=== PATIENT | male | born 1990 | race African-American/Black ===

== ENCOUNTER 2021-04-08 05:21 | Emergency (ER) | payer SELFPAY ==
[~2021-04-08] VITALS: Ht 182.9 cm; Wt 81.8 kg
--- NOTE | 2021-04-08 07:03 | RAD ---
EXAMINATION: XR CHEST 1V CLINICAL HISTORY: Cough EXAM DATE/TIME: 04/08/2021 6:38 AM COMPARISON: None FINDINGS: Lines, Tubes, and Devices: None. Cardiomediastinal Silhouette: Within normal limits. Lungs and Pleura: No evidence of focal airspace consolidation, pleural effusion, or pneumothorax. Bones and Soft Tissues: No acute osseous abnormality. IMPRESSION: No evidence of acute cardiopulmonary abnormality. Electronically signed by: Anup Platt DO (04/08/2021 7:00 AM) MIKIE
[2021-04-08] MEDS ORDERED: CETI1TAB7 PO (07:14)
[2021-04-08] MEDS ORDERED: PRED50TA PO (07:14)
--- NOTE | 2021-04-08 07:15 | ED.ADGEN ---
Past Medical History Past Medical History: No Pertinent History Past Surgical History: Other Additional Past Surgical Histo: left acl Smoking Status: Current Every Day Smoker Alcohol Use: Occasionally Drug Use: Marijuana General Adult EDM: Chief Complaint: COUGH HPI: HPI: Patient is a 30-year-old previously healthy male who presents to the emergency room with a dry cough and chest congestion. He states that he does occasionally get some thick mucus up. He denies any shortness of breath, fever, sore throat, chest pain, nausea, vomiting, change in taste, change in smell. He has not been exposed to anybody with Covid that he knows of. He has not had his Covid vacc mayra. He has not tried to take anything at home for his symptoms. Review of Systems: Review of Systems: Complete ROS is negative unless otherwise documented in HPI Allergies: Allergies: Allergies Coded Allergies Type Severity Reaction Last Updated Verified No Known Drug Allergies 11/12/15 No Physical Exam: PE: General: Awake, alert, NAD. Well Nourished, well hydrated. Cooperative HEENT: Atraumatic, EOMI, PERRL, airway patent, moist oral mucosa Neck: Supple, trachea midline Respiratory: CTA bilaterally, normal effort, no wheezing/crackles CV: RRR, no murmur, cap refill <2 GI: Soft, nondistended, nontender, no masses MSK: No obvious deformities Skin: Warm, dry, intact Neuro: A&O x3, speech NL, sensory and motor grossly intact, no focal deficits Psych: Normal affect, normal mood, not suicidal or homicidal Current Patient Data: Vital Signs: Vital Signs Date Time Temp Pulse Resp B/P (MAP) Pulse Ox O2 Delivery O2 Flow Rate FiO2 04/08/21 06:01 97.8 68 18 136/81 (99) 97 Room Air 97.8 EKG: EKG: [] Heart Score: C/O Chest Pain: N/A Risk Factors: Risk Factors: DM, Current or recent (<one month) smoker, HTN, HLP, family histo ry of CAD, obesity. Risk Scores: Score 0 - 3: 2.5% MACE over next 6 weeks - Discharge Home Score 4 - 6: 20.3% MACE over next 6 weeks - Admit for Clinical Observation Score 7 - 10: 72.7% MACE over next 6 weeks - Early Invasive Strategies Radiology/Procedures: Radiology/Procedures: [] Course & Med Decision Making: Course & Med Decision Making Pertinent Labs and Imaging studies reviewed. (See chart for details) Patient is a 30-year-old male who presents to the emergency room with cough and chest congestion. Patient is overall well-appearing. Chest x-ray was done and is normal. Patient will be swabbed for Covid. We did discuss quarantine. My suspicion for COVID-19 is low. Patient will be started on steroids and symptomatic care. Patient's test results and vitals while in the ED were fully reviewed and discussed with the patient. Patient is stable and at this time does not need admission to the hospital. We have discussed strict return precautions and the importance of following up with their Primary Care Physician. Patient stated understanding and was given an opportunity to ask any questions. Patient is in agreement with plan. Dragon Disclaimer: Dragon Disclaimer: This electronic medical record was generated, in whole or in part, using a voice recognition dictation system. Departure Departure Impression: Primary Impression: Bronchitis Additional Impression: Person under investigation for COVID-19 Disposition: 01 HOME / SELF CARE / HOMELESS Condition: STABLE Referrals: NO PCP (PCP) Patient Instructions: Acute Bronchitis Scripts Cetirizine Hcl/Pseudoephedrine (ZYRTEC-D TABLET) 1 Each Tab.er.12h 1 TAB PO BID, #20 TAB Prov: JESSICA MEJIA MD 04/08/21 Prednisone (PREDNISONE) 50 Mg Tablet 1 TAB PO DAILY, #5 TAB Prov: JESSICA MEJIA MD 04/08/21 Problem Qualifiers JESSICA MEJIA MD Apr 08, 2021 07:15
[2021-04-08 07:18] VITALS: BP 134/82
--- NOTE | 2021-04-09 09:28 | NUR ---
IP: Informed pt of positive COVID test and the need to quarantine for 10 days. Pt was at work and verbalized need to contact his employer and put on a mask.
== END 2021-04-08 07:34 | disposition home or self-care (01) ==
LOC: ER 05:21
DX: J40 Bronchitis, not specified as acute or chronic (principal); Z20.822 Contact with and (suspected) exposure to COVID-19
CPT/HCPCS: 71045; 99284; U0003